=== PATIENT | male | born 1985 | race Caucasian/White ===

== ENCOUNTER → 2024-05-07 12:30 | Outpatient (CLI) | payer OTHER, SELFPAY ==
--- NOTE | 2024-05-07 12:34 | DI.ECHO.S_ITS ---
[facility]+ [facility] : : [address] : : [place] : : [id number] : : Phone: [phone] Echocardiogram Report + + :Name: MAR IQBAL Study Date: 05/07/2024 Height: 66 in : :[facility] ReadingLocation: Weight: 200 lb : : Gender: Male BSA: 2.0 m2 : :: 1985 Age: 38 yrs BP: 126/85 mmHg: :Reason For Study: HEART CONDITION : :Ordering Physician: ANDREW, : :PATRICIA Performed By: Fidencio Don : :Referring: PATRICIA MORALES : + + Interpretation Summary The left ventricle is borderline dilated. Left ventricular systolic function is low normal. The ejection fraction is estimated to be 50-55%. The right ventricle is mildly dilated. The right ventricular systolic function is normal. The left atrial size is normal. There is no significant valvular heart disease. The aortic root is normal size. Procedure: A two-dimensional transthoracic echocardiogram with color flow and Doppler was performed. The study quality was technically good. There is no prior echocardiogram noted for this patient. The patient was in normal sinus rhythm during the exam. Left Ventricle: The left ventricle is borderline dilated. Left ventricular wall thickness is borderline increased. There is no ventricular septal defect visualized. Left ventricular systolic function is low normal. The ejection fraction is estimated to be 50-55%. There are no focal wall motion abnormalities. Diastolic parameters suggest probable normal left ventricular diastolic function and normal filling pressures. Right Ventricle: The right ventricle is mildly dilated. The right ventricular systolic function is normal. Atria: The left atrial size is normal. Right atrial size is normal. There is no Doppler evidence for an atrial septal defect. Mitral Valve: The mitral valve is normal in structure and function. There is trace mitral regurgitation. Aortic Valve: The aortic valve is normal in structure and function. No aortic regurgitation is present. Tricuspid Valve: The tricuspid valve is normal in structure and function. No tricuspid regurgitation. Pulmonic Valve: The pulmonic valve is normal in structure and function. There is no pulmonic valvular regurgitation. There is no significant valvular heart disease. Great Vessels: The aortic root is normal size. The dimensions of the ascending aorta are normal. The pulmonary artery is normal size. The IVC is of normal diameter and collapses greater than 50% with a sniff. This suggests a low right atrial pressure of 3 mm Hg. Pericardium/ Pleura There is no pericardial effusion. There is no pleural effusion. MMode/2D Measurements & Calculations LVIDd: 6.0 cm LVOT diam: 2.4 cm LVIDs: 4.2 cm Ao root diam: 3.2 cm FS: 29.8 % asc Aorta Diam: 3.2 cm EPSS: 0.68 cm Ao Arch Diam (Prox Trans): 2.0 cm IVSd: 1.1 cm LVPWd: 1.2 cm LV purcell. diameter/BSA (cm/m^2): 3.0 LV sys. diameter/BSA (cm/m^2): 2.1 LA A2 area: 16.7 cm2 RA long axis: 4.3 cm LA A4 area: 20.3 cm2 RA area: 15.9 cm2 LA length (vol): 5.5 cm RA vol: 49.7 ml LA vol: 52.0 ml RA : 24.8 ml/m2 LA vol index: 26.0 ml/m2 IVC diam: 1.5 cm RVD1 (basal): 4.3 cm RVD2 (mid): 3.5 cm TAPSE: 2.2 cm Doppler Measurements & Calculations Ao V2 max: 149.0 cm/sec LVOT Max Herman: 109.4 cm/sec Ao V2 mean: 108.0 cm/sec LV V1 max P.8 mmHg Ao max P.9 mmHg LV V1 VTI: 20.9 cm Ao mean P.1 mmHg JASKARAN(I,D): 3.2 cm2 Ao V2 VTI: 29.6 cm JASKARAN(V,D): 3.3 cm2 sev ratio: 0.71 JASKARAN indexed to BSA (cm^2/m^2): 1.6 MV E max herman: 49.8 cm/sec PA V2 max: 91.6 cm/sec MV A max herman: 41.9 cm/sec PA V2 mean: 62.7 cm/sec MV E/A: 1.2 PA mean P.8 mmHg Med Peak E' Herman: 8.2 cm/sec PA pr(Accel): 43.0 mmHg E/E' med: 6.0 Lat Peak E' Herman: 8.2 cm/sec E/E' lat: 6.0 E/e' average: 6.0 MV dec time: 0.21 sec SV(LVOT): 93.2 ml Reading Physician:02:43 PM
== END ==
PROVIDERS: Referring Provider Orthopaedic Surgery; Visit Provider Orthopaedic Surgery
DX: I51.9 Heart disease, unspecified (principal)
CPT/HCPCS: 93306